=== PATIENT | female | born 1995 | race Hispanic/Latino ===

== ENCOUNTER 2017-10-17 08:45 | Outpatient (CLI) | payer OTHER | END 2017-10-17 08:46 | disposition home or self-care (01) | LOC: BICULT 08:45 | PROVIDERS: ATTEND Family Medicine | DX: N63.31 Unspecified lump in axillary tail of the right breast (principal) ==

== ENCOUNTER 2018-03-05 06:22 | Day surgery (SDC) | payer OTHER ==
[2018-03-04 14:18] VITALS: BMI 23.6
[2018-03-05] MEDS ORDERED: Bupivacaine/Epinephrine 0.25% 30 ML VIAL ONE (06:35)
[2018-03-05] MEDS ORDERED: Lidocaine 2% PF 5 ML VIAL ONE (06:35)
[2018-03-05] MEDS ORDERED: CEFAZOLIN 2 GM/50 ML BAG ONE (07:29)
[2018-03-05 08:01] LABS: #Eosinphils 0.2 thou/uL (0.0-0.7); #Monocytes 0.4 thou/uL (0.11-0.59); #Neutrophils 2.9 thou/uL (1.40-6.50); %Basophils 0.7 % (0.0-1.0); %Eosinophils 3.5 % (0.0-10.0); %Lymphocytes 35.4 % (21.0-51.0); %Monocytes 7.6 % (0.0-10.0); %Neutrophils 52.8 % (42.0-75.0); Hemoglobin 12.7 g/dL (12.0-16.0); Mean Corpuscular HGB CONC 32.8 g/dL (32.0-36.0); Mean Corpuscular Hemoglobin 29.8 pg (27.0-31.0); Mean Corpuscular Volume 90.8 fL (78.0-98.0); Mean Platelet Volume 8.6 fL (7.4-10.4); Platelet Count 127 thou/uL (130-400); RBC Distribution Width 11.7 % (11.5-14.5); Red Blood Cell (RBC) Count 4.26 mill/uL (4.20-5.40); White Blood Cell (WBC) Count 5.6 thou/uL (4.8-10.8)
[2018-03-05 08:08] LABS: BHCG - Serum Negative (NEGATIVE); Pregs Control Background? CLEAR/WHITE (CLR/WHITE); Pregs Control Bar Appear? YES (CONTROL BAR)
[2018-03-05] MEDS ORDERED: Midazolam HCl 2 mg/2 ml Vial ONE (08:18)
[2018-03-05 08:58] LABS: Anion Gap 13 mmol/L (10-20); BUN (Urea Nitrogen) 6 mg/dL (7.0-18.7); Calc. Creatinine Clearance 115 mL/min (70-130); Carbon Dioxide 21 mmol/L (22-29); Chloride 108 mmol/L (98-107); Estimated GFR-MDRD Greater than 90; Glucose 84 mg/dL (70-105); Potassium 3.8 mmol/L (3.5-5.1); Sodium 138 mmol/L (136-145)
[2018-03-05] MEDS ORDERED: Fentanyl 100 MCG/2 ML VIAL ONE (09:49)
[2018-03-05] MEDS ORDERED: HYDROcodone/Acetaminophen 5/325 mg Tablet ONE (13:01)
[2018-03-05] MEDS ORDERED: PHENYLEPHRINE-NS 100 MCG/ML 10 ML SYRINGE ONE (21:40)
[2018-03-05] MEDS ORDERED: Glycopyrrolate 0.2 MG/ML 5 ML SYRINGE ONE (21:40)
[2018-03-05] MEDS ORDERED: PROPOFOL 200 MG/20 ML VIAL ONE (21:40)
[2018-03-05] MEDS ORDERED: Ondansetron PF 4 MG/2 ML Vial ONE (21:40)
--- NOTE | 2018-03-06 13:30 | OP ---
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 OPERATION PERFORMED: Excision of 4 cm soft tissue mass of right axilla and excision of right supernumerary nipple. ANESTHESIA: General endotracheal. INDICATIONS FOR PROCEDURE: The patient is a 22-year-old female. She presented with a palpable mass in the right axilla. This had consistency, is not typical of lipoma, recommended excision. She additionally notes ongoing symptoms related to a lesion consistent with an accessory/supernumerary nipple just anterior to the right axilla. I recommend excision of both under the same anesthetic. DESCRIPTION OF OPERATION: Informed consent was obtained. The patient was taken to the operating room, where general endotracheal anesthesia was obtained with the patient in supine position. Right axilla and chest prepped with ChloraPrep and draped in sterile fashion. The axilla was inspected with the ultrasound and the location of soft tissue mass was identified and marked on the skin. A planned incision was marked and local anesthetic was infiltrated using 0.25% Marcaine with epinephrine. A transverse axillary incision was created and dissection was carried through skin and subcutaneous tissue. Dissection was carried into the axilla. The mass was superficial and quickly identified. I carefully dissected across the superficial aspect of this and was able to almost enucleate it from within the superficial axilla. It was carefully dissected, avoiding any injury to deeper axillary structures. Meticulous hemostasis was maintained. The lesion was passed off the field. The wound was closed in layers with 3-0 and 4-0 Monocryl suture. Dermabond was placed externally. Attention was then turned to the supernumerary nipple. Local anesthetic was infiltrated using 0.25% Marcaine with epinephrine. It was then excised using the elliptical incision that was vertically oriented. It was passed off the field. Hemostasis was obtained. The wound was closed in layers with 3-0 and 4-0 Monocryl suture, and Dermabond was placed externally. There were no complications. The patient tolerated the procedure well and was taken to recovery room in stable condition. Job ID: [id number]
--- NOTE | 2018-03-18 06:14 | PQF ---
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 Check the appropriate box and include in your discharge summary. [x ] ___Twice in the operative report, I mention that the axillary mass which was excised was 4 cm. Fibroadenomas are not excised with additional "margins". So, the excised dimension is STILL a 4 cm mass. I hope this helps. [ ] [ ] [ ] Please check this box if this does not apply to this patient [ ] Unable to determine [ ] Other diagnosis: Review the following information and exercise your independent professional judgment in responding to the clarification. Based upon the clinical findings, risk factors, and treatment, please clarify if you are treating one of the above probable or suspected diagnoses. Physician Signature: MWS Date____18 Time 10:30 AM MTDD
== END 2018-03-05 13:26 | disposition home or self-care (01) ==
LOC: SDC 06:22
PROVIDERS: ATTEND Specialist
PROC: 0JB60ZZ Excision of Chest Subcutaneous Tissue and Fascia, Open Approach (ICD-10-PCS; principal; 2018-03-05)
PROC: 0HB Skin and Breast, Excision (ICD-10-PCS; principal; 2018-03-05)
DX: Q83.3 Accessory nipple (principal); D21.3 Benign neoplasm of connective and other soft tissue of thorax
CPT/HCPCS: 80048; 84703; 85025; 88302; 88305; J0131; J2001; J2250; J2405; J2704; J3010

== ENCOUNTER 2018-06-07 13:17 | Outpatient (CLI) | payer OTHER ==
--- NOTE | 2018-06-07 15:37 | ULT ---
VENOUS DOPPLER ULTRASOUND OF THE LEFT LOWER EXTREMITY: HISTORY: Left lower extremity edema in the calf. The patient had a DVT 11 years ago. She is currently on bir th control. TECHNIQUE: Foster-scale ultrasound with color-flow and spectral Doppler imaging of the deep venous system of the l eft lower extremity is performed. FINDINGS: There is good flow, compression, and augmentation noted in the left common femoral, femoral, deep fem oral, popliteal, posterior tibial, and greater saphenous veins. IMPRESSION: No evidence of deep venous thrombosis in the left lower extremity. POS: C
== END 2018-06-07 13:18 | disposition home or self-care (01) ==
LOC: SCSULT 13:17
PROVIDERS: ATTEND Family Medicine
DX: Z09 Encounter for follow-up examination after completed treatment for conditions other than malignant neoplasm (principal); Z86.718 Personal history of other venous thrombosis and embolism

== ENCOUNTER 2019-04-01 15:13 | Outpatient (CLI) | payer OTHER ==
--- NOTE | 2019-04-01 15:35 | ULT ---
LEFT LOWER EXTREMITY VENOUS DUPLEX ULTRASOUND INCLUDING COLOR AND SPECTRAL DOPPLER IMAGING: HISTORY: Swelling, edema, and pain. COMPARISON: 06/07/2018. FINDINGS: Exam performed from groin to ankle including visualized greater saphenous, common femoral, superficia l femoral, profunda femoral, popliteal, trifurcation, and posterior tibial vein regions. Phasic flow noted at all levels with normal compressibility and normal augmentation. No intraluminal thrombus. IMPRESSION: No evidence for deep venous thrombosis. POS: OFF
== END 2019-04-01 15:14 | disposition home or self-care (01) ==
LOC: BICULT 15:13
PROVIDERS: ATTEND Internal Medicine Medical Oncology
DX: M79.605 Pain in left leg (principal); R60.0 Localized edema
CPT/HCPCS: 85610; 85730